=== PATIENT | female | born 1955 | race Caucasian/White ===

== ENCOUNTER 2022-03-11 00:01 | Emergency (ER) | payer OTHER ==
[~2022-03-11] VITALS: Ht 152.4 cm; Wt 63.5 kg
[2022-03-11] MEDS ORDERED: FLUORESCEIN OPTH STRIP 1 MG OP ONE (00:20)
[2022-03-11] MEDS ORDERED: TETRACAINE HCL/PF 0.5% OPTH 4 ML BTL OP ONE (00:20)
[2022-03-11 00:28] VITALS: BP 141/99
--- NOTE | 2022-03-11 00:30 | NUR ---
66 Y/O FEMALE BIB FAMILY FROM HOME, C/O PAIN IN HER LEFT EYE. PT STATES SHE HAS GLAUCOMA. +PRESSURE, NO LOSS OF VISION. A/OX4, UNLABORED BREATHING, AMBULATORY. HX: GLAUCOMA
[2022-03-11] MEDS ORDERED: TOMOMETER 1 DEV DEV MC ONE (02:57)
[2022-03-11] MEDS ORDERED: TOBR5SOL17 LEFT EYE (03:27)
[2022-03-11] MEDS ORDERED: KETO5SOL OP (03:36)
[2022-03-11] MEDS ORDERED: ERYTHROMYCIN 0.5% OPTH OINT 1 GM TUBE OP ONE (03:40)
[2022-03-11 03:45] VITALS: BP 132/86
--- NOTE | 2022-03-11 03:45 | NUR ---
Patient discharged with v/s stable. Written and verbal after care instructions given and explained. Patient alert, oriented and verbalized understanding of instructions. Ambulatory with steady gait. All questions addressed prior to discharge. ID band removed. Patient advised to follow up with PMD. Rx of TOBRAMYCIN given. Patient educated on indication of medication including possible reaction and side effects. Opportunity to ask questions provided and answered. VSS, A/OX4, UNLABORED BREATHING, AMBULATORY, AND CALM DEMEANOR.
== END 2022-03-11 03:45 | disposition home or self-care (01) ==
LOC: MED 00:01
DX: H57.12 Ocular pain, left eye (principal); Z79.899 Other long term (current) drug therapy
CPT/HCPCS: 99284